=== PATIENT | female | born 1980 | race Two or more races ===

== ENCOUNTER 2020-08-19 18:07 | Inpatient (IN) | payer BC, OTHER ==
[~2020-08-19] VITALS: Ht 152.4 cm; Wt 86.2 kg
[2020-08-19] MEDS ORDERED: KETOROLAC TROMETH 30 MG/ML 1ML VIAL IV ONE (19:15)
[2020-08-19] MEDS ORDERED: fentaNYL CITRATE 100 MCG/2 ML VL IV ONE (19:15)
[2020-08-19] MEDS ORDERED: IOHEXOL 300 MG/ML 100ML BOTTLE IJ ONE (20:17)
[2020-08-19 22:46] LABS: Basophils # (auto) 0 10 ^3/uL (0-0.2); Eosinophils # (auto) 0 10 ^3/uL (0-0.8); Eosinophils % (auto) 0.2 % (0.0-7.0); Hemoglobin 11.9 g/dL (12.2-16.2); Neutrophils # (auto) 6.2 10 ^3/uL (1.6-8.6); White Blood Cell 7.8 10^3/uL (4.4-10.8)
[2020-08-19 22:48] LABS: Basophils % (auto) 0.1 % (0.0-2.0); Hematocrit 36.8 % (36.0-46.0); Lymphocytes % (auto) 13.4 % (10.0-50.0); Mean Corpuscular Hemoglobin 25.5 pg (28.0-32.0); Mean Corpuscular Hgb Conc. 32.4 g/dL (32.0-36.0); Mean Corpuscular Volume 78.7 fL (80.0-100.0); Monocytes # (auto) 0.5 10 ^3/uL (0-1.3); Monocytes % (auto) 6.8 % (0.0-12.0); Neutrophils % (auto) 79.5 % (37.0-80.0); Nucleated Red Blood Cells % 0.1 %; Platelet Count (auto) 239 10^3/uL (140-450); Red Blood Cells 4.68 10^6/uL (4.0-5.20); Red Cell Distribution Width 16.3 % (11.8-14.3)
[2020-08-19 23:00] LABS: Albumin 3.2 g/dL (3.4-5.0); Anion Gap 7 (5-15); Blood Urea Nitrogen 13 mg/dL (7-18); Carbon Dioxide 24 mmol/L (21-32); Chloride 108 mmol/L (98-107); Glucose 108 mg/dL (74-106); Magnesium 2.3 mg/dL (1.6-2.6); Sodium 139 mmol/L (136-145)
[2020-08-19 23:07] LABS: Alanine Aminotransferase 172 U/L (13-56); Alkaline Phosphatase 86 U/L (45-117); Aspartate Aminotransferase 254 U/L (15-37); BUN/Creatinine Ratio 19.7; Bilirubin, Total 0.2 mg/dL (0.2-1.0); GFR African American 128 mL/min; GFR Non-African American 106 mL/min; Total Protein 7.3 g/dL (6.4-8.2)
[2020-08-19 23:22] LABS: Urine Bacteria FEW /hpf (None Seen); Urine Blood Negative /uL (Negative); Urine Mucus FEW (None Seen); Urine Specific Gravity 1.044 (1.001-1.035); Urine WBC 5 /hpf (0 - 5)
[2020-08-19] MEDS ORDERED: diphenhdrAMINE HCL 50 MG/1 ML VL IV ONE (23:30)
[2020-08-19 23:31] LABS: INR 1.02 (0.9-1.15); Partial Thromboplastin Time 25.7 sec (23.0-31.2)
[2020-08-20] MEDS ORDERED: ONDANSETRON HCL 4 MG/2 ML VIAL IV ONE (04:15)
[2020-08-20] MEDS ORDERED: MORPHINE SULFATE 4 MG/ML SYR/VIAL IV ONE (04:15)
[2020-08-20] MEDS ORDERED: DOXYCYCLINE 100MG/250ML 250 ML IV SCH ×2 (07:15→16:15)
[2020-08-20] MEDS ORDERED: ONDANSETRON HCL 4 MG/2 ML VIAL IV PRN (07:15)
[2020-08-20] MEDS ORDERED: NITROGLYCERIN 0.4 MG SL TAB SL PRN (07:15)
[2020-08-20] MEDS ORDERED: MORPHINE SULF INJ 2 MG/ML SYRINGE 1ML IV PRN (07:15)
[2020-08-20] MEDS ORDERED: ACETAMINOPHEN 325 MG TAB PO PRN (07:15)
[2020-08-20] MEDS ORDERED: DOCUSATE SOD 100 MG CAP PO PRN (07:15)
[2020-08-20 08:27] LABS: Basophils # (auto) 0 10 ^3/uL (0-0.2); Basophils % (auto) 0.2 % (0.0-2.0); Eosinophils # (auto) 0 10 ^3/uL (0-0.8); Hemoglobin 11.3 g/dL (12.2-16.2); Lymphocytes # (auto) 1.6 10 ^3/uL (0.4-5.4); Monocytes # (auto) 0.5 10 ^3/uL (0-1.3); Nucleated Red Blood Cells % 0.1 %; Red Cell Distribution Width 16.4 % (11.8-14.3)
[2020-08-20 08:29] LABS: Eosinophils % (auto) 0.4 % (0.0-7.0); Hematocrit 35.4 % (36.0-46.0); Lymphocytes % (auto) 30.2 % (10.0-50.0); Mean Corpuscular Hemoglobin 25.2 pg (28.0-32.0); Mean Corpuscular Hgb Conc. 31.9 g/dL (32.0-36.0); Mean Corpuscular Volume 79.2 fL (80.0-100.0); Monocytes % (auto) 9.9 % (0.0-12.0); Neutrophils # (auto) 3.1 10 ^3/uL (1.6-8.6); Neutrophils % (auto) 59.3 % (37.0-80.0); Platelet Count (auto) 232 10^3/uL (140-450); Red Blood Cells 4.47 10^6/uL (4.0-5.20); White Blood Cell 5.2 10^3/uL (4.4-10.8)
[2020-08-20 08:57] LABS: Albumin 3.1 g/dL (3.4-5.0); Potassium 3.8 mmol/L (3.5-5.1)
[2020-08-20 09:00] LABS: BUN/Creatinine Ratio 24.1
[2020-08-20] MEDS: MORPHINE SULFATE 4 MG/ML SYR/VIAL IV PRN ×4 (09:00→22:47)
[2020-08-20 09:02] LABS: Bilirubin, Total 0.3 mg/dL (0.2-1.0); Total Protein 7.1 g/dL (6.4-8.2)
[2020-08-20] MEDS: ASCORBIC ACID 500 MG TAB PO SCH ×2 (09:49→22:46)
[2020-08-20] MEDS: MULTIPLE VITAMIN TAB PO SCH (09:49)
[2020-08-20] MEDS: ENOXAPARIN SOD 40 MG/0.4 ML SYRINGE SC SCH (09:49)
[2020-08-20] MEDS: ZINC SULFATE 220mg CAP or TAB PO SCH (09:49)
[2020-08-20] MEDS: FAMOTIDINE 20 MG TAB PO SCH ×2 (09:49→22:46)
[2020-08-20] MEDS ORDERED: IOHEXOL 350 MG/ML 100ML IJ ONE (13:33)
[2020-08-20] MEDS ORDERED: ALBUTEROL SULF HFA 90MCG INH 200DOSE IN SCH (14:00)
[2020-08-20] MEDS: ALBUTEROL SULF HFA 90MCG INH 200DOSE IN SCH ×2 (14:00→22:25)
[2020-08-20] MEDS: SODIUM CHLOR 0.9% PF (SALINE LOCK) 10ML VIAL/SYR IV SCH ×2 (14:33→22:46)
[2020-08-20 14:35] VITALS: BP 102/62
[2020-08-20 16:43] LABS: Basophils # (auto) 0 10 ^3/uL (0-0.2); Basophils % (auto) 0.2 % (0.0-2.0); Eosinophils # (auto) 0 10 ^3/uL (0-0.8); Eosinophils % (auto) 0.8 % (0.0-7.0); Hematocrit 35.5 % (36.0-46.0); Hemoglobin 11.6 g/dL (12.2-16.2); Lymphocytes # (auto) 1.3 10 ^3/uL (0.4-5.4); Lymphocytes % (auto) 26.1 % (10.0-50.0); Mean Corpuscular Hemoglobin 26.1 pg (28.0-32.0); Mean Corpuscular Hgb Conc. 32.8 g/dL (32.0-36.0); Mean Corpuscular Volume 79.4 fL (80.0-100.0); Monocytes # (auto) 0.3 10 ^3/uL (0-1.3); Monocytes % (auto) 6.3 % (0.0-12.0); Neutrophils # (auto) 3.4 10 ^3/uL (1.6-8.6); Neutrophils % (auto) 66.6 % (37.0-80.0); Platelet Count (auto) 223 10^3/uL (140-450); Red Blood Cells 4.47 10^6/uL (4.0-5.20); Red Cell Distribution Width 16.4 % (11.8-14.3)
[2020-08-20 17:03] LABS: Albumin 3.2 g/dL (3.4-5.0); Calcium 7.8 mg/dL (8.5-10.1); Magnesium 2.1 mg/dL (1.6-2.6); Potassium 3.4 mmol/L (3.5-5.1)
[2020-08-20 17:11] LABS: BUN/Creatinine Ratio 19.7; Bilirubin, Total 0.4 mg/dL (0.2-1.0); CRP High Sensitivity 4.33 mg/dL (< 0.3); Total Protein 7.3 g/dL (6.4-8.2)
[2020-08-20 17:19] VITALS: BP 109/65
[2020-08-20] MEDS: HYDROcodone-ACET 5/325MG TAB PO PRN (17:26)
[2020-08-20 22:00] VITALS: BP 99/62
[2020-08-20] MEDS: BUDESONIDE (INHALATION) 180 MCG IH IN SCH (22:26)
[2020-08-20] MEDS: DOXYCYCLINE 100MG/250ML 250 ML IV SCH (22:46)
[2020-08-21] MEDS: MORPHINE SULFATE 4 MG/ML SYR/VIAL IV PRN (03:37)
[2020-08-21 05:00] VITALS: BP 96/62
[2020-08-21] MEDS: SODIUM CHLOR 0.9% PF (SALINE LOCK) 10ML VIAL/SYR IV SCH ×3 (05:59→22:21)
[2020-08-21] MEDS: ALBUTEROL SULF HFA 90MCG INH 200DOSE IN SCH ×3 (06:16→22:26)
[2020-08-21] MEDS: BUDESONIDE (INHALATION) 180 MCG IH IN SCH ×2 (06:17→22:26)
[2020-08-21 06:36] LABS: Basophils # (auto) 0 10 ^3/uL (0-0.2); Basophils % (auto) 0.5 % (0.0-2.0); Eosinophils # (auto) 0.1 10 ^3/uL (0-0.8); Lymphocytes # (auto) 1.4 10 ^3/uL (0.4-5.4); Red Cell Distribution Width 16.6 % (11.8-14.3)
[2020-08-21 06:38] LABS: Eosinophils % (auto) 2.5 % (0.0-7.0); Hematocrit 34.8 % (36.0-46.0); Hemoglobin 11.2 g/dL (12.2-16.2); Lymphocytes % (auto) 25.8 % (10.0-50.0); Mean Corpuscular Hemoglobin 25.4 pg (28.0-32.0); Mean Corpuscular Volume 79.3 fL (80.0-100.0); Monocytes # (auto) 0.4 10 ^3/uL (0-1.3); Monocytes % (auto) 8.3 % (0.0-12.0); Neutrophils # (auto) 3.3 10 ^3/uL (1.6-8.6); Neutrophils % (auto) 62.9 % (37.0-80.0); Nucleated Red Blood Cells % 0.1 %; Platelet Count (auto) 205 10^3/uL (140-450); Red Blood Cells 4.39 10^6/uL (4.0-5.20); White Blood Cell 5.3 10^3/uL (4.4-10.8)
[2020-08-21 06:57] LABS: Potassium 3.6 mmol/L (3.5-5.1)
[2020-08-21 07:06] LABS: Albumin 2.8 g/dL (3.4-5.0); BUN/Creatinine Ratio 19.3; Bilirubin, Total 0.4 mg/dL (0.2-1.0); Calcium 7.7 mg/dL (8.5-10.1); Total Protein 6.6 g/dL (6.4-8.2)
[2020-08-21] MEDS: HYDROcodone-ACET 5/325MG TAB PO PRN ×2 (08:24→15:12)
[2020-08-21 09:00] VITALS: BP 100/58
[2020-08-21] MEDS: FAMOTIDINE 20 MG TAB PO SCH ×2 (10:03→22:21)
[2020-08-21] MEDS: DOXYCYCLINE 100MG/250ML 250 ML IV SCH ×2 (10:03→22:20)
[2020-08-21] MEDS: MULTIPLE VITAMIN TAB PO SCH (10:03)
[2020-08-21] MEDS: DexAMETHasone SOD PHOS 10MG/1ML VIAL INJ IV SCH (10:03)
[2020-08-21] MEDS: ZINC SULFATE 220mg CAP or TAB PO SCH (10:03)
[2020-08-21] MEDS: ENOXAPARIN SOD 40 MG/0.4 ML SYRINGE SC SCH (10:04)
[2020-08-21] MEDS: ASCORBIC ACID 500 MG TAB PO SCH ×2 (10:04→22:21)
[2020-08-21 13:00] VITALS: BP 103/63
[2020-08-21 17:03] VITALS: BP 117/72
[2020-08-21 22:00] VITALS: BP 118/70
[2020-08-22] MEDS: MORPHINE SULFATE 4 MG/ML SYR/VIAL IV PRN (02:23)
[2020-08-22 05:00] VITALS: BP 104/64
[2020-08-22] MEDS: BUDESONIDE (INHALATION) 180 MCG IH IN SCH (06:46)
[2020-08-22] MEDS: ALBUTEROL SULF HFA 90MCG INH 200DOSE IN SCH ×2 (06:46→14:35)
[2020-08-22] MEDS: HYDROcodone-ACET 5/325MG TAB PO PRN ×2 (07:00→13:51)
[2020-08-22 07:19] LABS: Basophils # (auto) 0 10 ^3/uL (0-0.2); Basophils % (auto) 0.1 % (0.0-2.0); Eosinophils # (auto) 0 10 ^3/uL (0-0.8); Lymphocytes % (auto) 10.6 % (10.0-50.0)
[2020-08-22 07:26] LABS: Hemoglobin 11.3 g/dL (12.2-16.2); Mean Corpuscular Hemoglobin 25.4 pg (28.0-32.0); Mean Corpuscular Hgb Conc. 32.4 g/dL (32.0-36.0); Mean Corpuscular Volume 78.4 fL (80.0-100.0); Monocytes # (auto) 0.6 10 ^3/uL (0-1.3); Monocytes % (auto) 6.3 % (0.0-12.0); Neutrophils # (auto) 7.6 10 ^3/uL (1.6-8.6); Platelet Count (auto) 269 10^3/uL (140-450); Red Blood Cells 4.47 10^6/uL (4.0-5.20); Red Cell Distribution Width 16.2 % (11.8-14.3); White Blood Cell 9.1 10^3/uL (4.4-10.8)
[2020-08-22 07:33] LABS: Calcium 7.9 mg/dL (8.5-10.1); Potassium 3.7 mmol/L (3.5-5.1)
[2020-08-22 07:36] LABS: BUN/Creatinine Ratio 19.6
[2020-08-22] MEDS: DexAMETHasone SOD PHOS 10MG/1ML VIAL INJ IV SCH (08:54)
[2020-08-22] MEDS: FAMOTIDINE 20 MG TAB PO SCH (08:55)
[2020-08-22] MEDS: MULTIPLE VITAMIN TAB PO SCH (08:55)
[2020-08-22] MEDS: DOXYCYCLINE 100MG/250ML 250 ML IV SCH (08:55)
[2020-08-22] MEDS: ZINC SULFATE 220mg CAP or TAB PO SCH (08:55)
[2020-08-22] MEDS: ENOXAPARIN SOD 40 MG/0.4 ML SYRINGE SC SCH (08:55)
[2020-08-22 09:00] VITALS: BP 109/69
[2020-08-22] MEDS: ASCORBIC ACID 500 MG TAB PO SCH (09:57)
[2020-08-22 13:00] VITALS: BP 111/71
[2020-08-22] MEDS ORDERED: DOXY-286 PO (13:03)
[2020-08-22] MEDS ORDERED: ASCO500T11 PO (13:03)
== END 2020-08-22 16:17 | disposition home or self-care (01) | DRG 564 ==
LOC: ER 18:07 → EDBD 18:07 → TELE 18:08 → TELE-EAST 08-20 14:00
PROVIDERS: ADMIT Anesthesiology; ATTEND Internal Medicine Pulmonary Disease
DX: S22.22XA Fracture of body of sternum, initial encounter for closed fracture (principal); U07.1 COVID-19; J12.89 Other viral pneumonia; S27.329A Contusion of lung, unspecified, initial encounter; K76.0 Fatty (change of) liver, not elsewhere classified; N83.201 Unspecified ovarian cyst, right side; N83.202 Unspecified ovarian cyst, left side; Z90.710 Acquired absence of both cervix and uterus; V43.52XA Car driver injured in collision with other type car in traffic accident, initial encounter; Y93.89 Activity, other specified; Y92.410 Unspecified street and highway as the place of occurrence of the external cause; Z88.8 Allergy status to other drugs, medicaments and biological substances
CPT/HCPCS: 36415; 70450; 71260; 72125; 74177; 80048; 80053; 81001; 82728; 83605; 83615; 83735; 84443; 84484; 84702; 85025; 85379; 85610; 85730; 86141; 87426; 93005; 94640; 96365; 96375; G0378; J1100; J1885; J2405; J3490

== ENCOUNTER → 2021-01-18 | Outpatient (CLI) | payer BC ==
[~2021-01-18] MED LIST: ASCO500T11 PO; DOXY-286 PO
[2021-01-18 09:02] LABS: Basophils # (auto) 0.1 10 ^3/uL (0-0.2); Eosinophils # (auto) 0.5 10 ^3/uL (0-0.8); Lymphocytes # (auto) 1.8 10 ^3/uL (0.4-5.4); Mean Corpuscular Hgb Conc. 32.3 g/dL (32.0-36.0); Mean Corpuscular Volume 78.2 fL (80.0-100.0); Neutrophils # (auto) 3.8 10 ^3/uL (1.6-8.6); Nucleated Red Blood Cells % 0.1 %
[2021-01-18 09:04] LABS: Basophils % (auto) 0.8 % (0.0-2.0); Eosinophils % (auto) 7.4 % (0.0-7.0); Hematocrit 38.1 % (36.0-46.0); Hemoglobin 12.3 g/dL (12.2-16.2); Lymphocytes % (auto) 26.5 % (10.0-50.0); Mean Corpuscular Hemoglobin 25.2 pg (28.0-32.0); Monocytes # (auto) 0.6 10 ^3/uL (0-1.3); Monocytes % (auto) 8.5 % (0.0-12.0); Neutrophils % (auto) 56.8 % (37.0-80.0); Platelet Count (auto) 312 10^3/uL (140-450); Red Blood Cells 4.88 10^6/uL (4.0-5.20); Red Cell Distribution Width 16.6 % (11.8-14.3); White Blood Cell 6.7 10^3/uL (4.4-10.8)
[2021-01-18 09:06] LABS: Urine Bacteria NONE SEEN /hpf (None Seen); Urine Blood Negative /uL (Negative); Urine Mucus FEW (None Seen); Urine Specific Gravity 1.029 (1.001-1.035); Urine WBC 3 /hpf (0 - 5)
[2021-01-18 09:12] LABS: Albumin 3.5 g/dL (3.4-5.0); Calcium 8.6 mg/dL (8.5-10.1); Potassium 4.1 mmol/L (3.5-5.1)
[2021-01-18 09:17] LABS: BUN/Creatinine Ratio 20.7; Bilirubin, Total 0.6 mg/dL (0.2-1.0); Total Protein 7.5 g/dL (6.4-8.2)
== END | disposition home or self-care (01) ==
LOC: LAB 08:28
PROVIDERS: ATTEND Student in an Organized Health Care Education/Training Program
DX: R74.8 Abnormal levels of other serum enzymes (principal); R73.9 Hyperglycemia, unspecified
CPT/HCPCS: 36415; 80053; 80061; 81001; 83036; 84443; 85025